=== PATIENT | male | born 1975 | race Hispanic/Latino ===

== ENCOUNTER 2016-08-11 17:43 | Emergency (ER) | payer OTHER, MEDICAID ==
[~2016-08-11] VITALS: Ht 170.2 cm; Wt 90.3 kg
[2016-08-11 17:52] VITALS: BP 140/79; PULSE 67; RESP 16; O2SAT 98
[2016-08-11 18:17] VITALS: BP 132/73; PULSE 60; RESP 16; O2SAT 98
[2016-08-11 18:18] VITALS: BP 136/78; PULSE 61
--- NOTE | 2016-08-11 18:20 | ED.REPORT ---
HPI-Dizziness / Weakness Date of Service Aug 11, 2016 ED Provider: Vj Mccloud MD This is a 41 year old male s/p vasectomy presenting to the emergency department via EMS complaining of dizziness. Pt underwent vasectomy today and complained of dizziness upon infiltration with lidocaine during the procedure. Additionally , pt was unable to stand on two attempts due to dizziness. Dr. Triplett, urologist recommended pt be sent to the ED for further monitoring as the office closed. Vitals were stable before sent to the ED. Dizziness has since resolved. Pt denies chest pain, shortness of breath, diaphoresis, metallic taste, tinnitus, or lip tingling. Denies fever, chills, nausea, vomiting, abdominal pain, diarrhea, or constipation. Nursing Notes Stated Complaint: DIZZINESS, VERTIGO Chief Complaint: General Complaint Nursing Notes Reviewed: Yes Allergies: Coded Allergies: No Known Allergies (Unverified , 08/11/16) General Time Seen by MD: 18:04 Chief Complaint Dizzy Hx Obtained From: Patient Arrived By: Ambulance Onset Occurred: Just prior to arrival Symptom Duration: Since onset Severity: Current: Mild Pertinent Negative: Pt denies other symptoms Recent Healthcare: Recent doctor visit Similar Sx Previous: No Past Medical History Past Medical History Denies Past Surgical History Vasectomy Ambulatory Status Independent Review of Systems Constitutional: Denies: Chills, Fever Respiratory: Denies: Non-productive cough Cardiovascular: Denies: Chest pain GI: Denies: Abdominal pain, Nausea, Vomiting Neurologic: Reports: Dizziness, Denies: Headache Complete sys rev & neg: except as marked. Physical Exam Initial Vital Signs Vital Signs (First) Date Time Temp Pulse Resp B/P Pulse Ox O2 Delivery O2 Flow Rate FiO2 08/11/16 17:52 37.3 67 16 140/79 98 Room Air Initial VS: Reviewed ENT: Mucous membranes moist, Conjunctiva normal, No scleral icterus Neck: Supple, Non-tender, Full range of motion Abdomen / GI: Soft, Non-tender, No guarding, No rebound, No distention Extremities: Vascular intact, Neuro intact, No swelling, No tenderness Skin: Warm, Dry, No cyanosis Psychiatric: Mood/affect normal, Behavior normal, Normal thought content General/Constitutional: Awake, Alert Head / Eyes: Atraumatic, Normocephalic, PERRL, EOMI Respiratory / Chest: Breath sounds NL, Breath sounds = bilat, No respiratory distress, No rales, No rhonchi, No wheezing Cardiovascular: Heart rate NL, Regular rhythm, Heart sounds NL, No murmurs, Cap refill not delayed, Peripheral circulation NL Neurologic: Oriented X3, Speech NL, No motor deficits, No sensory deficits, CN II - XII intact, Cerebellar NL Male Genitourinary: No penile discharge Sling in place on scrotum with ice pack Re-Eval/Medical Decision Med Decision/Clinical Course 41-year-old male presenting with dizziness status post vasectomy. Patient was getting injected with lidocaine for his procedure and started to feel anxious and subsequently felt dizzy. No associated symptoms. Per urology, vital signs were stable throughout. Patient was monitored for one hour and was sent over for further monitoring as the clinic was closing. Patient did not want to come to the ER. He is requesting no further labs or workup. His vital signs are stable. His symptoms have long since resolved. He had no other associated symptoms. Likely vasovagal due to pain versus anxiety. Cannot rule out lidocaine toxicity though no other associated symptoms, VSS throughout and patient declining further labs and workup and requesting to go home. He will be discharged home with return precautions. Counseled Regarding: Diagnosis, Lab results, Need for follow-up, When/why to return to ED Patient Discharge & Departure Impression: Primary Impression: Dizziness Disposition: Home Discharge Condition All VS Reviewed: Yes Condition: Stable Additional Instructions: Thank you for seeking care at the emergency department today. Your workup was reassuring. Follow-up with your primary care provider. Return to the emergency department if you develop any new or worsening symptoms such as vision changes, lightheadedness, numbness or tingling, or weakness. Referrals: Maynor Ro DO (PCP) [facility] Attestation Portions of this note were transcribed by Eduar Umanzor. I, Dr. Mccloud personally performed the history, physical exam and medical decision-making; I reviewed and confirmed the accuracy of the information in the transcribed note. Signed by Moni Walker, 08/11/2016 at 23:00. Maynor Ro Ben M MD Aug 11, 2016 18:20 EDUAR UMANZOR Aug 11, 2016 18:23
[2016-08-11 18:49] VITALS: BP 136/78; PULSE 61; RESP 16; O2SAT 98
== END 2016-08-11 18:49 | disposition home or self-care (01) ==
LOC: EDBD 17:43 → SED 17:43
DX: R42 Dizziness and giddiness (principal); T41.3X5A Adverse effect of local anesthetics, initial encounter; X58.XXXA Exposure to other specified factors, initial encounter; Y92.9 Unspecified place or not applicable; Y93.89 Activity, other specified; Y99.8 Other external cause status; Z98.52 Vasectomy status